=== PATIENT | male | born 1975 | race Caucasian/White ===

== ENCOUNTER 2017-09-06 13:18 | Emergency (ER) | payer MEDICAID ==
[~2017-09-06] VITALS: Ht 188 cm; Wt 97.0 kg
[~2017-09-06 13:18] MED LIST: HYDR-569 PO; IBUP-1574 PO; NO HOME MEDS; SUCR1TAB34 PO
[2017-09-06 13:53] VITALS: BP 147/97
[2017-09-06] MEDS ORDERED: ketorolac tromethamine 15mg/ml inj. IM ONE (14:35)
[2017-09-06] MEDS ORDERED: DICL100G15 TOP (15:03)
[2017-09-06] MEDS ORDERED: IBUP-1986 PO (15:03)
== END 2017-09-06 15:21 | disposition home or self-care (01) ==
LOC: ER 13:18
DX: S63.501A Unspecified sprain of right wrist, initial encounter (principal); F17.200 Nicotine dependence, unspecified, uncomplicated; F12.90 Cannabis use, unspecified, uncomplicated; Z79.1 Long term (current) use of non-steroidal anti-inflammatories (NSAID); X50.0XXA Overexertion from strenuous movement or load, initial encounter; Y93.89 Activity, other specified; Y92.89 Other specified places as the place of occurrence of the external cause; Y99.8 Other external cause status
CPT/HCPCS: 29125; 73110; 96372; 99284; J1885

== ENCOUNTER 2017-10-12 19:31 | Emergency (ER) | payer MEDICAID ==
[~2017-10-12] VITALS: Ht 188 cm; Wt 95.0 kg
[~2017-10-12 19:31] MED LIST changes: +DICL100G15 TOP; +IBUP-1986 PO
[2017-10-12 19:48] VITALS: BP 156/93
== END 2017-10-12 21:16 | disposition home or self-care (01) ==
LOC: ER 19:31
DX: M70.31 Other bursitis of elbow, right elbow (principal); F12.10 Cannabis abuse, uncomplicated; Y93.89 Activity, other specified
CPT/HCPCS: 73080; 99284

== ENCOUNTER 2018-01-09 12:15 | Emergency (ER) | payer MEDICAID ==
[~2018-01-09] VITALS: Ht 188 cm; Wt 95.5 kg
[~2018-01-09 12:15] MED LIST changes: +HYDR-4383 PO; -HYDR-569 PO
[2018-01-09 12:19] VITALS: BP 129/93
[2018-01-09] MEDS ORDERED: normal saline 1000ML IV soln IVB ONE (13:00)
[2018-01-09 13:29] LABS: BASOPHILS % (AUTO) 0 % (0-1); EOSINOPHILS # (AUTO) 0.2 X10'3 (0-0.9); EOSINOPHILS % (AUTO) 1.4 % (0-6); HEMATOCRIT 50.8 % (42.0-52.0); HEMOGLOBIN 17.2 g/dl (14.0-17.9); LYMPHOCYTES # (AUTO) 1.6 X10'3 (1.1-4.8); LYMPHOCYTES % (AUTO) 12.9 % (21-51); MEAN CORPUSCULAR HEMOGLOBIN 31.6 PG (27.0-31.0); MEAN CORPUSCULAR HGB CONC 33.9 % (33.0-36.5); MEAN CORPUSCULAR VOLUME 93.3 FL (78-98); MEAN PLATELET VOLUME 9.1 FL (7.4-10.4); MONOCYTES # (AUTO) 0.3 X10'3 (0-0.9); MONOCYTES % (AUTO) 2.7 % (2-12); NEUTROPHILS # (AUTO) 10.1 X10'3 (1.8-7.7); PLATELET COUNT 225 X10'3 (140-440); RED BLOOD COUNT 5.45 X10'6 (4.70-6.10); RED CELL DISTRIBUTION WIDTH 12.8 % (11.5-14.5); WHITE BLOOD COUNT 12.1 X10'3 (4.5-11.0)
[2018-01-09 13:46] LABS: ALANINE AMINOTRANSFERASE 42 U/L (12-78); ALBUMIN 4.2 G/DL (3.4-5.0); ALKALINE PHOSPHATASE 136 IU/L (46-116); ANION GAP 13 (8-16); ASPARTATE AMINO TRANSFERASE 28 U/L (10-37); BILIRUBIN,TOTAL 0.4 MG/DL (0.1-1.0); BLOOD UREA NITROGEN 10 MG/DL (7-18); CALCIUM 9.1 MG/DL (8.5-10.1); CHLORIDE 102 MMOL/L (99-107); CREATININE 0.91 MG/DL (0.60-1.10); GLUCOSE 126 MG/DL (70-104); POTASSIUM 4.2 MMOL/L (3.5-5.1); SODIUM 139 MMOL/L (135-145); TOTAL CARBON DIOXIDE 24.3 MMOL/L (24-32); TOTAL PROTEIN 8.3 G/DL (6.4-8.2); eGFR > 90 ML/MIN
[2018-01-09 13:48] LABS: CLARITY,URINE CLEAR (Clear); COLOR,URINE YELLOW (Yellow); GLUCOSE, URINE NEGATIVE (Neg); KETONES,URINE TRACE mg/dl (Neg); LEUKOCYTE ESTERASE ,URINE NEGATIVE (Neg); NITRITES, URINE NEGATIVE (Neg); OCCULT BLOOD,URINE NEGATIVE (Neg); PH,URINE 5.5 (4.8-8.0); PROTEIN,URINE NEGATIVE (Neg); UA COLLECTION TYPE CLN CATCH MIDSTREAM; UROBILINOGEN,URINE 0.2 E.U/dL (0.2-1.0)
[2018-01-09 13:57] LABS: PROTHROMBIN TIME 10.2 SECONDS (9.0-12.0)
[2018-01-09 14:24] LABS: OCCULT BLOOD STOOL POSITIVE (Neg)
[2018-01-09] MEDS ORDERED: levoFLOXACIN 750MG TABLET PO ONE (14:25)
[2018-01-09] MEDS ORDERED: metroNIDAZOLE 500mg tablet PO ONE (14:25)
[2018-01-09] MEDS ORDERED: CIPR-230 PO (14:26)
[2018-01-09] MEDS ORDERED: METR500T4 PO (14:26)
[2018-01-09 14:47] LABS: C DIFF ANTIGEN NEGATIVE (NEGATIVE); C DIFF SPECIMEN=DIARRHEA? ACCEPTABLE; C DIFFICILE TOXINS A&B NEGATIVE (Neg)
== END 2018-01-09 14:51 | disposition home or self-care (01) ==
LOC: ER 12:16
DX: R19.7 Diarrhea, unspecified (principal); R19.5 Other fecal abnormalities; R10.12 Left upper quadrant pain; R10.32 Left lower quadrant pain; F12.90 Cannabis use, unspecified, uncomplicated; Z87.442 Personal history of urinary calculi
CPT/HCPCS: 36415; 74176; 80053; 81003; 82272; 85025; 85610; 86885; 86900; 86901; 87045; 87046; 87324; 87449; 96360; 99284; J7030; J3490

== ENCOUNTER 2018-04-08 11:00 | Emergency (ER) | payer MEDICAID ==
[~2018-04-08] VITALS: Ht 188 cm; Wt 99.2 kg
[2018-04-08 11:17] VITALS: BP 146/92
[2018-04-08] MEDS ORDERED: ATRNS (11:46)
[2018-04-08] MEDS ORDERED: AMOX-580 PO (11:46)
[2018-04-08] MEDS ORDERED: PRED20TA PO (11:46)
== END 2018-04-08 11:56 | disposition home or self-care (01) ==
LOC: ER 11:00
DX: J32.0 Chronic maxillary sinusitis (principal); J32.1 Chronic frontal sinusitis; H65.93 Unspecified nonsuppurative otitis media, bilateral; F12.90 Cannabis use, unspecified, uncomplicated
CPT/HCPCS: 99283

== ENCOUNTER 2019-08-16 07:10 | Emergency (ER) | payer MEDICAID ==
[~2019-08-16] VITALS: Ht 188 cm; Wt 92.0 kg
[~2019-08-16 07:10] MED LIST changes: +ATRNS
[2019-08-16] MEDS ORDERED: famotidine/PF 10 mg/ml inj IV ONE (07:40)
[2019-08-16] MEDS ORDERED: bisacodyl 10mg suppository rectal RC ONE (07:40)
[2019-08-16] MEDS ORDERED: normal saline 1000ML IV soln IVB ONE (07:40)
[2019-08-16 08:26] LABS: BASOPHILS # (AUTO) 0.1 X10'3 (0-0.2); BASOPHILS % (AUTO) 0.5 % (0-1); EOSINOPHILS # (AUTO) 0.2 X10'3 (0-0.9); EOSINOPHILS % (AUTO) 1.9 % (0-6); HEMATOCRIT 44.2 % (42.0-52.0); HEMOGLOBIN 15.1 g/dl (14.0-17.9); LYMPHOCYTES # (AUTO) 2.8 X10'3 (1.1-4.8); LYMPHOCYTES % (AUTO) 22.9 % (21-51); MEAN CORPUSCULAR HEMOGLOBIN 32.6 PG (27.0-31.0); MEAN CORPUSCULAR HGB CONC 34.2 g/dL (33.0-36.5); MEAN CORPUSCULAR VOLUME 95.4 FL (78-98); MEAN PLATELET VOLUME 8.7 FL (7.4-10.4); MONOCYTES % (AUTO) 7.9 % (2-12); NEUTROPHILS # (AUTO) 8.2 X10'3 (1.8-7.7); NEUTROPHILS % (AUTO) 66.8 % (42-75); PLATELET COUNT 178 X10'3 (140-440); RED BLOOD COUNT 4.64 X10'6 (4.70-6.10); WHITE BLOOD COUNT 12.3 X10'3 (4.5-11.0)
[2019-08-16] MEDS ORDERED: polyethylene glycol 3350 17gm powd pack PO SCH ×2 (08:30→21:00)
[2019-08-16] MEDS ORDERED: polyethylene glycol 3350 17gm powd pack PO ONE (08:30)
[2019-08-16 08:40] LABS: ALANINE AMINOTRANSFERASE 38 U/L (12-78); ALBUMIN 3.4 G/DL (3.4-5.0); ALBUMIN/GLOBULIN RATIO 0.9 (1.1-1.5); ALKALINE PHOSPHATASE 118 IU/L (46-116); ANION GAP 7 (8-16); ASPARTATE AMINO TRANSFERASE 25 U/L (10-37); BILIRUBIN,TOTAL 0.4 MG/DL (0.1-1.0); BLOOD UREA NITROGEN 10 MG/DL (7-18); BUN/CREATININE RATIO 10.8 (5.4-32.0); CHLORIDE 108 MMOL/L (99-107); CREATININE 0.93 MG/DL (0.60-1.10); GLUCOSE 153 MG/DL (70-104); POTASSIUM 3.9 MMOL/L (3.5-5.1); SODIUM 140 MMOL/L (135-145); TOTAL CARBON DIOXIDE 24.6 MMOL/L (24-32); eGFR 88 ML/MIN
[2019-08-16] MEDS ORDERED: HYDR25SU32 RC (09:11)
[2019-08-16 09:22] VITALS: BP 145/78
== END 2019-08-16 09:25 | disposition home or self-care (01) ==
LOC: ER 07:11
DX: K59.00 Constipation, unspecified (principal); K64.9 Unspecified hemorrhoids; F12.90 Cannabis use, unspecified, uncomplicated; Z87.442 Personal history of urinary calculi; Z98.890 Other specified postprocedural states; Z72.89 Other problems related to lifestyle; Z79.899 Other long term (current) drug therapy
CPT/HCPCS: 36415; 74022; 80053; 85025; 96374; 99284; J3490; J7030

== ENCOUNTER 2019-10-31 11:16 | Emergency (ER) | payer MEDICAID ==
[~2019-10-31] VITALS: Ht 188 cm; Wt 92.0 kg
[~2019-10-31 11:16] MED LIST changes: +HYDR25SU32 RC
[2019-10-31 11:25] VITALS: BP 138/91
[2019-10-31] MEDS ORDERED: LIDO1ADH TOP (11:43)
[2019-10-31] MEDS ORDERED: CYCL-1 PO (11:43)
[2019-10-31] MEDS ORDERED: IBUP-1984 PO (11:43)
--- NOTE | 2019-10-31 11:54 | NUR ---
Patient seen and assessed by provider.
== END 2019-10-31 12:30 | disposition home or self-care (01) ==
LOC: ER 11:17
DX: S86.911A Strain of unspecified muscle(s) and tendon(s) at lower leg level, right leg, initial encounter (principal); F12.90 Cannabis use, unspecified, uncomplicated; Z87.442 Personal history of urinary calculi; Z98.890 Other specified postprocedural states; Z28.9 Immunization not carried out for unspecified reason; Z79.899 Other long term (current) drug therapy; W01.0XXA Fall on same level from slipping, tripping and stumbling without subsequent striking against object, initial encounter; Y93.89 Activity, other specified; Y92.89 Other specified places as the place of occurrence of the external cause; Y99.8 Other external cause status
CPT/HCPCS: 99283

== ENCOUNTER 2020-04-29 14:15 | Emergency (ER) | payer MEDICAID ==
[~2020-04-29] VITALS: Ht 188 cm; Wt 98.3 kg
[~2020-04-29 14:15] MED LIST changes: +CYCL-1 PO; +LIDO1ADH TOP
[2020-04-29 14:18] VITALS: BP 154/92
== END 2020-04-29 15:48 | disposition home or self-care (01) ==
LOC: ER 14:16
DX: S60.052A Contusion of left little finger without damage to nail, initial encounter (principal); M79.645 Pain in left finger(s); F12.90 Cannabis use, unspecified, uncomplicated; Z87.442 Personal history of urinary calculi; Z98.890 Other specified postprocedural states; Z72.89 Other problems related to lifestyle; Z79.899 Other long term (current) drug therapy; X58.XXXA Exposure to other specified factors, initial encounter; Y93.89 Activity, other specified; Y92.89 Other specified places as the place of occurrence of the external cause; Y99.8 Other external cause status
CPT/HCPCS: 73140; 99283

== ENCOUNTER 2020-09-17 07:02 | Emergency (ER) | payer MEDICAID ==
[~2020-09-17] VITALS: Ht 188 cm; Wt 101.8 kg
[2020-09-17 07:28] VITALS: BP 149/101
[2020-09-17] MEDS ORDERED: DEXA6TAB6 PO (08:22)
[2020-09-17] MEDS ORDERED: BUDE10.26 INH (08:32)
[2020-09-17] MEDS ORDERED: AZIT250T PO (08:32)
[2020-09-17] MEDS ORDERED: ALBU18HF2 INH (08:32)
[2020-09-17] MEDS ORDERED: CHOL20004 PO (08:32)
== END 2020-09-17 08:35 | disposition home or self-care (01) ==
LOC: ER 07:02
DX: U07.1 COVID-19 (principal); R05 Cough; R06.02 Shortness of breath; R06.2 Wheezing; F12.90 Cannabis use, unspecified, uncomplicated; Z87.442 Personal history of urinary calculi; Z98.890 Other specified postprocedural states; Z72.89 Other problems related to lifestyle; Z79.2 Long term (current) use of antibiotics; Z79.899 Other long term (current) drug therapy
CPT/HCPCS: 71045; 87635; 99284; C9803

== ENCOUNTER 2020-09-29 17:28 | Emergency (ER) | payer MEDICAID ==
[~2020-09-29] VITALS: Ht 188 cm; Wt 101.0 kg
[~2020-09-29 17:28] MED LIST changes: +ALBU18HF2 INH; +AZIT250T PO; +BUDE10.26 INH; +CHOL20004 PO; +DEXA6TAB6 PO
[2020-09-29 18:20] VITALS: BP 138/96
[2020-09-29 18:48] LABS: BASOPHILS # (AUTO) 0.2 X10'3 (0-0.2); BASOPHILS % (AUTO) 1.3 % (0-1); EOSINOPHILS # (AUTO) 0.2 X10'3 (0-0.9); EOSINOPHILS % (AUTO) 1.7 % (0-6); HEMATOCRIT 42.7 % (42.0-52.0); HEMOGLOBIN 14.8 g/dl (14.0-17.9); LYMPHOCYTES # (AUTO) 4.3 X10'3 (1.1-4.8); LYMPHOCYTES % (AUTO) 33.7 % (21-51); MEAN CORPUSCULAR HEMOGLOBIN 32.3 PG (27.0-31.0); MEAN CORPUSCULAR HGB CONC 34.8 g/dL (33.0-36.5); MEAN CORPUSCULAR VOLUME 92.9 FL (78-98); MEAN PLATELET VOLUME 8.8 FL (7.4-10.4); MONOCYTES # (AUTO) 1.1 X10'3 (0-0.9); MONOCYTES % (AUTO) 8.3 % (2-12); PLATELET COUNT 218 X10'3 (140-440); RED CELL DISTRIBUTION WIDTH 12.5 % (11.5-14.5); WHITE BLOOD COUNT 12.7 X10'3 (4.5-11.0)
[2020-09-29 18:57] LABS: ALANINE AMINOTRANSFERASE 34 U/L (12-78); ALBUMIN 3.7 G/DL (3.4-5.0); ALBUMIN/GLOBULIN RATIO 0.9 (1.1-1.5); ALKALINE PHOSPHATASE 115 IU/L (46-116); ANION GAP 14 (8-16); ASPARTATE AMINO TRANSFERASE 21 U/L (10-37); BILIRUBIN,TOTAL 0.3 MG/DL (0.1-1.0); BLOOD UREA NITROGEN 11 MG/DL (7-18); BUN/CREATININE RATIO 12.2 (5.4-32.0); CALCIUM 8.7 MG/DL (8.5-10.1); CHLORIDE 107 MMOL/L (99-107); GLUCOSE 94 MG/DL (70-104); POTASSIUM 3.6 MMOL/L (3.5-5.1); SODIUM 144 MMOL/L (135-145); TOTAL PROTEIN 7.8 G/DL (6.4-8.2); eGFR > 90 ML/MIN
[2020-09-29] MEDS ORDERED: VALA100031 PO (19:13)
[2020-09-29] MEDS ORDERED: PRED20TA PO ×2 (19:13→19:22)
[2020-09-29] MEDS ORDERED: AMOX-422 PO (19:22)
[2020-09-29] MEDS ORDERED: ketorolac tromethamine 15mg/ml inj. IM ONE (19:25)
== END 2020-09-29 20:45 | disposition home or self-care (01) ==
LOC: ER 17:30
DX: R06.02 Shortness of breath (principal); R07.9 Chest pain, unspecified; Z20.822 Contact with and (suspected) exposure to COVID-19
CPT/HCPCS: 36415; 71045; 80053; 83880; 84484; 85025; 93005; 99285

== ENCOUNTER 2021-01-28 19:05 | Emergency (ER) | payer MEDICAID ==
[~2021-01-28] VITALS: Ht 188 cm; Wt 102.0 kg
[2021-01-28 21:02] VITALS: BP 153/98
[2021-01-29] MEDS ORDERED: NAPR-56 PO (17:30)
[2021-01-29] MEDS ORDERED: HYDR-3965 PO (17:30)
[2021-01-29] MEDS ORDERED: LIDO700A32 TOP (17:30)
== END 2021-01-28 23:37 | disposition left against medical advice (07) ==
LOC: ER 19:07
DX: R07.89 Other chest pain (principal); Z53.21 Procedure and treatment not carried out due to patient leaving prior to being seen by health care provider

== ENCOUNTER 2021-01-29 10:16 | Emergency (ER) | payer MEDICAID ==
[~2021-01-29] VITALS: Ht 188 cm; Wt 102.2 kg
[2021-01-29 17:12] VITALS: BP 154/97
[2021-01-29] MEDS ORDERED: LIDO700A32 TOP (17:30)
[2021-01-29] MEDS ORDERED: NAPR-56 PO (17:30)
[2021-01-29] MEDS ORDERED: HYDR-3965 PO (17:30)
== END 2021-01-29 17:43 | disposition home or self-care (01) ==
LOC: ER 10:17
DX: S20.211A Contusion of right front wall of thorax, initial encounter (principal); R06.02 Shortness of breath; R07.89 Other chest pain; F12.90 Cannabis use, unspecified, uncomplicated; Z87.442 Personal history of urinary calculi; Z98.890 Other specified postprocedural states; Z72.89 Other problems related to lifestyle; Z79.2 Long term (current) use of antibiotics; Z79.899 Other long term (current) drug therapy; X58.XXXA Exposure to other specified factors, initial encounter; Y93.89 Activity, other specified; Y92.89 Other specified places as the place of occurrence of the external cause; Y99.8 Other external cause status
CPT/HCPCS: 71046; 93005; 99283

== ENCOUNTER 2021-12-16 18:29 | Emergency (ER) | payer MEDICAID ==
[~2021-12-16] VITALS: Ht 188 cm; Wt 109.1 kg
[~2021-12-16 18:29] MED LIST changes: +LIDO700A32 TOP; +LIDOcaine 2% (20 mg/ml) 5ml cardiac syringe ONE; +LIDOcaine 2% 5ml jelly ONE; +calcium chloride 100 MG/1 ML inj IV ONE; +epiNEPHrine 0.1mg/ml 10ml syringe ONE; +etomidate 2mg/ml inj. ONE; +magnesium sulf 1 GM/2 ML ONE; +rocuronium 10mg/ml inj IV ONE; +sodium bicarbonate (8.4%) 1 mEq/ml syringe ONE; +tenecteplase 50mg kit IV ONE
[2021-12-16 18:45] VITALS: BP 189/109
--- NOTE | 2021-12-16 19:30 | NUR ---
Please refer to code sheets for documentation
[2021-12-16 19:39] LABS: BASOPHILS # (AUTO) 0.1 X10'3 (0-0.2); BASOPHILS % (AUTO) 1.1 % (0-1); EOSINOPHILS # (AUTO) 0.3 X10'3 (0-0.9); EOSINOPHILS % (AUTO) 2.9 % (0-6); HEMATOCRIT 44.3 % (42.0-52.0); HEMOGLOBIN 15.3 g/dl (14.0-17.9); LYMPHOCYTES # (AUTO) 4.8 X10'3 (1.1-4.8); LYMPHOCYTES % (AUTO) 47.9 % (21-51); MEAN CORPUSCULAR HEMOGLOBIN 32.4 PG (27.0-31.0); MEAN CORPUSCULAR HGB CONC 34.5 g/dL (33.0-36.5); MEAN CORPUSCULAR VOLUME 93.8 FL (78-98); MEAN PLATELET VOLUME 8.7 FL (7.4-10.4); MONOCYTES # (AUTO) 0.9 X10'3 (0-0.9); NEUTROPHILS # (AUTO) 3.9 X10'3 (1.8-7.7); NEUTROPHILS % (AUTO) 39.1 % (42-75); PLATELET COUNT 208 X10'3 (140-440); RED BLOOD COUNT 4.73 X10'6 (4.70-6.10); RED CELL DISTRIBUTION WIDTH 12.9 % (11.5-14.5); WHITE BLOOD COUNT 9.9 X10'3 (4.5-11.0)
[2021-12-16 19:57] LABS: ALANINE AMINOTRANSFERASE 54 U/L (12-78); ALBUMIN 3.8 G/DL (3.4-5.0); ALBUMIN/GLOBULIN RATIO 1.1 (1.1-1.5); ALKALINE PHOSPHATASE 127 IU/L (46-116); ANION GAP 5 (8-16); ASPARTATE AMINO TRANSFERASE 36 U/L (10-37); BILIRUBIN,TOTAL 0.3 MG/DL (0.1-1.0); BLOOD UREA NITROGEN 10 MG/DL (7-18); BUN/CREATININE RATIO 9.2 (5.4-32.0); CALCIUM 8.6 MG/DL (8.5-10.1); CHLORIDE 104 MMOL/L (99-107); CREATININE 1.09 MG/DL (0.60-1.10); GLUCOSE 134 MG/DL (70-104); POTASSIUM 3.4 MMOL/L (3.5-5.1); SODIUM 136 MMOL/L (135-145); TOTAL CARBON DIOXIDE 26.8 MMOL/L (24-32); TOTAL PROTEIN 7.4 G/DL (6.4-8.2); eGFR 73 ML/MIN
[2021-12-16] MEDS ORDERED: amiodarone/D5 360MG/200ML BAG 200 ML IV SCH (20:05)
[2021-12-16] MEDS ORDERED: magnesium 2GM in 50ml NS 50 ML IV ONE (20:15)
[2021-12-16] MEDS ORDERED: dextrose 50%-water 50ml dispensing syringe IV ONE (20:28)
[2021-12-16] MEDS ORDERED: sodium bicarbonate (8.4%) 1 mEq/ml syringe IV ONE (21:00)
[2021-12-16] MEDS ORDERED: WATER IV ONE (21:35)
[2021-12-16] MEDS ORDERED: PROCAINAMIDE IV ONE (21:35)
[2021-12-16] MEDS ORDERED: DEXTROSE 5% IV ONE (21:35)
== END 2021-12-17 02:30 ==
LOC: ER 18:30
DX: I46.9 Cardiac arrest, cause unspecified (principal); R07.89 Other chest pain; R06.02 Shortness of breath; F12.90 Cannabis use, unspecified, uncomplicated; Z87.442 Personal history of urinary calculi; Z98.890 Other specified postprocedural states; Z72.89 Other problems related to lifestyle; Z79.2 Long term (current) use of antibiotics; Z79.899 Other long term (current) drug therapy
CPT/HCPCS: 31500; 36415; 71045; 80053; 82800; 82948; 83880; 84484; 85025; 92950; 92960; 99291; 99292; J3490; J7030; 94760; J0171; J3101; J3475